=== PATIENT | male | born 1955 | race Caucasian/White ===

== ENCOUNTER 2016-11-20 09:40 | Emergency (ER) | payer BC, OTHER ==
[~2016-11-20] VITALS: Ht 172.7 cm; Wt 103.5 kg
[~2016-11-20 09:40] MED LIST: ATOR-22 PO; CLC100 PO; FELO5TAB PO; OXYC-106 PO; OXYSR20 PO
[2016-11-20 09:45] VITALS: TEMP 37.2; Ht 172.7 cm; Wt 103.5 kg
--- NOTE | 2016-11-20 09:46 | EMERGENCY ROOM VISIT NOTE ---
History Report prepared by Elena: Jelly Key Under the Supervision of: Dr. Saman Manzanares M.D. First contact with patient: 09:38 Stated Complaint: CARDIAC ASSESSMENT History of Present Illness The patient is a 61 year old male who presents to the Emergency Room with an abnormal stress test that occurred prior to arrival. Per Dr. Bermudez, Cardiology, the patient has a history of a previous cardiac arrest and UT in 2013. He notes that the patient had a stent placed in 2013 and has been doing well on Aspirin and Plavix. Dr. Bermudez reports that the patient had a routine follow up appointment today and was found to have an abnormal stress test. He states that the patient is being sent to the emergency department to have a cardiac catheterization. The patient denies having any current complaints. Source of History: patient, treating provider (Dr. Bermudez) Onset: prior to arrival Position: other (global) Quality: other (abnormal stress test) Note: No complaints Review of Systems See HPI for pertinent positives & negatives. A total of 10 systems reviewed and were otherwise negative. Past Medical & Surgical Medical Problems: (1) Cardiac arrest (2) Heart disease (3) Myocardial infarction Surgical Problems: (1) H/O heart artery stent Family History No pertinent family history stated. Social History Marital Status: Housing Status: lives with significant other Occupation Status: employed Current/Historical Medications Scheduled Aspirin (Aspirin Ec), 81 MG PO DAILY Clopidogrel (Plavix), 75 MG PO DAILY Ferrous Sulfate (Kp Ferrous Sulfate), 325 MG PO 3XWK Fish Oil (Jones-3), 1 CAP PO DAILY Lisinopril (Prinivil), 10 MG PO DAILY Metoprolol Succ (Toprol Xl) (Toprol-Xl ), 100 MG PO DAILY Nitroglycerin (Nitrostat), 0.4 MG UT PRN Pantoprazole (Protonix), 20 MG PO DAILY Rosuvastatin Calcium (Crestor), 40 MG PO DAILY Allergies Coded Allergies: Celecoxib (Unverified Adverse Reaction, Intermediate, REDDENING SKIN, ) Loperamide (Unverified Adverse Reaction, Intermediate, BODY RASH, 11/20/16) Physical Exam Vital Signs Date Time Temp Pulse Resp B/P (MAP) Pulse Ox O2 Delivery O2 Flow Rate FiO2 11/20/16 13:00 63 16 118/58 (78) 95 Room Air 11/20/16 12:45 62 16 122/60 (80) 95 Room Air 11/20/16 12:30 64 16 124/64 (84) 95 Room Air 11/20/16 12:15 62 16 119/62 (81) 95 Room Air 11/20/16 12:00 66 16 125/63 (83) 95 Room Air 11/20/16 11:45 64 16 120/64 (82) 95 Room Air 11/20/16 11:30 74 16 116/78 (91) 95 Room Air 11/20/16 11:20 78 16 119/78 (92) 95 Room Air 11/20/16 10:34 65 18 139/80 97 11/20/16 09:58 66 11/20/16 09:52 95 Room Air 11/20/16 09:45 37.2 51 18 170/85 95 Room Air Physical Exam GENERAL: Patient is a healthy-appearing well-nourished male HEAD: Normocephalic atraumatic EYES: Ocular movements intact pupils equal and react to light OROPHARYNX mucous membranes are moist no exudates present no erythema or edema present NECK: Supple no nuchal rigidity CHEST: Good equal expansion LUNGS: Clear and equal to auscultation CARDIAC: Normal S1 and S2 ABDOMEN: Soft nontender no guarding BACK: No CVA tenderness EXTREMITIES: No pain upon palpation normal muscle strength in all groups no clubbing cyanosis or edema NEURO: Patient is following commands and answering questions appropriately. Alert and oriented x3 Cranial Nerves 2-12 grossly intact Medical Decision & Procedures ER Provider Diagnostic Interpretation: X-ray results as stated below per interpretation by me and the radiologist: CHEST ONE VIEW PORTABLE CLINICAL HISTORY: Atypical chest pain COMPARISON STUDY: 09/12/2007 FINDINGS: The cardiac and mediastinal contours are normal. There is no evidence of focal pulmonary consolidation. There is no evidence of failure. No pleural effusions are visualized.[ There is a left humeral arthroplasty. IMPRESSION: No active disease in the chest. Electronically signed by: Helder Cole M.D. 11/20/2016 10:12 AM Dictated Date/Time: 11/20/2016 10:12 AM Laboratory Results 11/20/16 09:55 Red Blood Count 4.84, Mean Corpuscular Volume 85.3, Mean Corpuscular Hemoglobin 30.0, Mean Corpuscular Hemoglobin Concent 35.1, Mean Platelet Volume 11.0, Neutrophils (%) (Auto) 71.0, Lymphocytes (%) (Auto) 21.2, Monocytes (%) (Auto) 5.8, Eosinophils (%) (Auto) 1.5, Basophils (%) (Auto) 0.3, Neutrophils # (Auto) 4.67, Lymphocytes # (Auto) 1.39, Monocytes # (Auto) 0.38, Eosinophils # (Auto) 0.10, Basophils # (Auto) 0.02 11/20/16 09:55 Test 11/20/16 09:55 White Blood Count 6.57 K/uL (4.8-10.8) Red Blood Count 4.84 M/uL (4.7-6.1) Hemoglobin 14.5 g/dL (14.0-18.0) Hematocrit 41.3 % (42-52) Mean Corpuscular Volume 85.3 fL (80-100) Mean Corpuscular Hemoglobin 30.0 pg (25-34) Mean Corpuscular Hemoglobin Concent 35.1 g/dl (32-36) Platelet Count 144 K/uL (130-400) Mean Platelet Volume 11.0 fL (7.4-10.4) Neutrophils (%) (Auto) 71.0 % Lymphocytes (%) (Auto) 21.2 % Monocytes (%) (Auto) 5.8 % Eosinophils (%) (Auto) 1.5 % Basophils (%) (Auto) 0.3 % Neutrophils # (Auto) 4.67 K/uL (1.4-6.5) Lymphocytes # (Auto) 1.39 K/uL (1.2-3.4) Monocytes # (Auto) 0.38 K/uL (0.11-0.59) Eosinophils # (Auto) 0.10 K/uL (0-0.5) Basophils # (Auto) 0.02 K/uL (0-0.2) RDW Standard Deviation 42.1 fL (36.4-46.3) RDW Coefficient of Variation 13.5 % (11.5-14.5) Immature Granulocyte % (Auto) 0.2 % Immature Granulocyte # (Auto) 0.01 K/uL (0.00-0.02) Prothrombin Time 12.0 SECONDS (9.0-12.0) Prothromb Time International Ratio 1.1 (0.9-1.1) Activated Partial Thromboplast Time 28.3 SECONDS (21.0-31.0) Partial Thromboplastin Ratio 1.1 Anion Gap 6.0 mmol/L (3-11) Est Creatinine Clear Calc Drug Dose 100.2 ml/min Estimated GFR () 106.0 Estimated GFR (Non- 91.4 BUN/Creatinine Ratio 16.7 (10-20) Calcium Level 9.7 mg/dl (8.5-10.1) Total Bilirubin 0.9 mg/dl (0.2-1) Direct Bilirubin 0.2 mg/dl (0-0.2) Aspartate Amino Transf (AST/SGOT) 38 U/L (15-37) Alanine Aminotransferase (ALT/SGPT) 60 U/L (12-78) Alkaline Phosphatase 68 U/L (45-117) Total Creatine Kinase 314 U/L (39-308) Creatine Kinase MB 3.0 ng/ml (0.5-3.6) Creatine Kinase MB Ratio 1.0 (0-3.0) Troponin I < 0.015 ng/ml (0-0.045) Total Protein 7.9 gm/dl (6.4-8.2) Albumin 4.2 gm/dl (3.4-5.0) Lipase 104 U/L (73-393) Labs reviewed by ED physician. Medications Administered Medications (Trade) Dose Ordered Sig/Itzel Route Start Time Stop Time Status Last Admin Dose Admin Heparin Sodium (Porcine) (Heparin Iv Bolus) 10,000 unit STK-MED ONCE .ROUTE 11/20/16 10:12 11/20/16 10:13 DC 11/20/16 10:12 5,000 UNIT Midazolam HCl (Versed Inj) 2 mg STK-MED ONCE .ROUTE 11/20/16 10:12 11/20/16 10:13 DC 11/20/16 10:12 1 MG Fentanyl Citrate (Fentanyl Inj) 100 mcg STK-MED ONCE .ROUTE 11/20/16 10:12 11/20/16 10:13 DC 11/20/16 10:12 12.5 MCG ECG Indication: other (abnormal stress test) Rate (beats per minute): 65 Rhythm: sinus rhythm Findings: 1st degree AV block, PVC, no acute ischemic change, other (old inferior infarct) ED Course 0938: Past medical records reviewed. The patient was evaluated in room A12B. A complete history and physical examination was performed. 1030: The patient understands and agrees with the treatment plan. He will be taken to the experimental machining lab manager for further evaluation and treatment. 1051: I discussed the patients case with Gregor Jesus. He states that he has the patient in the experimental machining lab manager. Medical Decision Differential diagnosis: Etiologies such as cardiac ischemia, aortic dissection, pulmonary embolism, pneumonia, pneumothorax, musculoskeletal, infections, pericarditis, myocarditis , esophageal rupture, gastrointestinal, as well as others were entertained. This is a 61-year-old male who presents emergency department after failing a stress test today as an out patient. An EKG was obtained which was unchanged from previous. The patient will be sent to the Industrial Relations Worker. I did discuss the case with Dr. Watt. Medication Reconcilliation Current Medication List: was personally reviewed by me Blood Pressure Screening Patient's blood pressure: Elevated blood pressure Blood pressure disposition: Referred to PCP Consults Time Called: 1049 Consulting Physician: Dr. Watt Cardiology Returned Call: 1051 I discussed the patients case with Dr. Watt Cardiology. He states that he has the patient in the experimental machining lab manager. Impression Primary Impression: Precordial chest pain Scribe Attestation The scribe's documentation has been prepared under my direction and personally reviewed by me in its entirety. I confirm that the note above accurately reflects all work, treatment, procedures, and medical decision making performed by me. Departure Information Dispostion Other (experimental machining lab manager) Referrals No Doctor, Assigned (PCP)
[2016-11-20] MEDS ORDERED: NiCARDipine HCL INJ 2.5 MG/ML 10 ML AMP ONE (10:12)
[2016-11-20] MEDS ORDERED: NITROGLYCERIN/D5W 100MCG/ML 20ML SYR ONE (10:12)
[2016-11-20] MEDS ORDERED: HEPARIN SOD (PORCINE) 1000 UNIT/ML 10 ML VIAL ONE (10:12)
[2016-11-20] MEDS ORDERED: MIDAZOLAM HCL 1 MG/ML 2ML VIAL ONE (10:12)
[2016-11-20] MEDS ORDERED: FENTANYL CITRATE INJ 50 MCG/1 ML 2 ML VIAL ONE (10:12)
[2016-11-20] MEDS ORDERED: NTRGSL/4 UT (10:14)
[2016-11-20] MEDS ORDERED: ASPI81TA28 PO (10:14)
[2016-11-20] MEDS ORDERED: PRT/20 PO (10:14)
[2016-11-20] MEDS ORDERED: CLOP1TAB15 PO (10:14)
[2016-11-20] MEDS ORDERED: LISI10TA PO (10:14)
[2016-11-20] MEDS ORDERED: FERR1TAB13 PO (10:14)
[2016-11-20] MEDS ORDERED: ROSU40TA PO (10:14)
[2016-11-20] MEDS ORDERED: METO1TAB69 PO (10:14)
[2016-11-20] MEDS ORDERED: OMEG10007 PO (10:14)
--- NOTE | 2016-11-20 10:14 | DIAGNOSTIC IMAGING REPORT ---
CHEST ONE VIEW PORTABLE CLINICAL HISTORY: Atypical chest pain COMPARISON STUDY: 09/12/2007 FINDINGS: The cardiac and mediastinal contours are normal. There is no evidence of focal pulmonary consolidation. There is no evidence of failure. No pleural effusions are visualized.[ There is a left humeral arthroplasty. IMPRESSION: No active disease in the chest. Electronically signed by: Helder Cole M.D. 11/20/2016 10:12 AM Dictated Date/Time: 11/20/2016 10:12 AM
[2016-11-20 10:18] LABS: BASO % 0.3 %; BASO ABS # 0.02 K/uL (0-0.2); COMPLETE YES; EOS % 1.5 %; HEMATOCRIT 41.3 % (42-52); IG% 0.2 %; LYMPH % 21.2 %; LYMPH ABS # 1.39 K/uL (1.2-3.4); MEAN CELL VOLUME 85.3 fL (80-100); MEAN CORPUSCULAR HGB CONC 35.1 g/dl (32-36); MONO % 5.8 %; PLATELET COUNT 144 K/uL (130-400); RED BLOOD COUNT 4.84 M/uL (4.7-6.1); WHITE BLOOD COUNT 6.57 K/uL (4.8-10.8)
[2016-11-20 10:34] VITALS: O2SAT 97
[2016-11-20 10:34] LABS: INR 1.1 (0.9-1.1); PARTIAL THROMBOPLASTIN RATIO 1.1
[2016-11-20 10:38] LABS: ALT/SGPT 60 U/L (12-78); AST/SGOT 38 U/L (15-37); BLOOD UREA NITROGEN 15 mg/dl (7-18); BUN/CREATININE RATIO 16.7 (10-20); CALCIUM 9.7 mg/dl (8.5-10.1); CARBON DIOXIDE 26 mmol/L (21-32); CHLORIDE 106 mmol/L (98-107); CREATININE 0.88 mg/dl (0.60-1.40); GLUCOSE 119 mg/dl (70-99); POTASSIUM 4.2 mmol/L (3.5-5.1); SODIUM 138 mmol/L (136-145)
[2016-11-20 10:46] LABS: ALKALINE PHOSPHATASE 68 U/L (45-117)
[2016-11-20] MEDS ORDERED: SODIUM CHLORIDE 0.9% 1000ML 1,000 ML IV SCH (11:33)
[2016-11-20] MEDS ORDERED: SODIUM CHLORIDE 0.9% 1000ML 250 ML IV PRN (11:33)
[2016-11-20] MEDS ORDERED: ATROPINE SULFATE 0.1 MG/ML 5ML SYR IV PRN (11:45)
[2016-11-20] MEDS ORDERED: NITROGLYCERIN 0.4 MG SL PER TAB CHARGE SL PRN (11:45)
[2016-11-20] MEDS ORDERED: ACETAMINOPHEN 325 MG TAB PO PRN (11:45)
--- NOTE | 2016-11-20 12:00 | [facility] Post Operative Brief Note ---
Preliminary Procedure Note Procedure Date Nov 20, 2016. Pre-Procedure Diagnosis Positive Stress Test, CAD AUC Score 7 Post-Procedure Diagnosis Severe CAD Procedure(s) Performed Coronary Angiography, Left Heart Cath, LV Angiography Chief Technologist Dr. Dipak Watt Loading Machine Adjuster(s) Becky Gaviria Estimated Blood Loss <15cc Medication(s) Fentanyl (12.5 mcg IV), Heparin (5000u IV), Nicardipine (250mcg intraarterial after sheath insertion), Nitroglycerin (200mcg intraarterial after sheath insertion), Versed (1mg IV), Lidocaine 1% (local infiltration) Preliminary Findings Left dominant coronary anatomy LM: calcified with 50% ostial and distal stenoses LAD: Type 1 with large diagonal. LAD eccentric 70% ostial stenosis LCX: Dominant, with high marginal, moderate large second marginal arising from stented area, small M3, large LPDA and [address] LCX has 50% proximal, 40% at prior stent. Second marginal is severely narrowed at origin >90% RCA: Non dominant without disease LV EF 50-55% no MR LVEDP 10 Recommendations CABG Specimens None Fluids (cc crystalloids) 260 Anesthesia Start 1049 End 1120 Monitor M Miguelina VELASQUEZ Procedural Complication(s) None Disposition Title Attorney Holding/Recovery
--- NOTE | 2016-11-20 12:19 | Discharge Instructions ---
Discharge Instructions Procedure Procedure Date: Nov 20, 2016. Reason for Visit: Cardiac Assessment. Discharge Discharge Date: Nov 20, 2016. Discharge Diagnosis: Coronary artery disease, abnormal stress test Problem List: Medical Problems: (1) Precordial chest pain Status: Acute Last Recorded Wt (Kilograms): 103.500 Anesthesia Post Anesthesia Instructions: If you have had General Anesthesia or IV Sedation: * Do not drive today. * Resume driving when surgeon permits. * Do not make important decisions or sign legal documents today. * Call surgeon for: 1. Temperature elevations greater than 101 degrees F. 2. Uncontrollable pain. 3. Excessive bleeding. 4. Persistent nausea and vomiting. 5. Medication intolerance (nausea, vomiting or rash). * For nausea and vomiting use only clear liquids such as: tea, soda, bouillon until nausea subsides, then gradually increase diet as tolerated. * If you have any concerns or questions, call your surgeon's office. If physician is unavailable and it is an emergency, call 911 or go to the nearest emergency room. Instructions Activity Recommendations: limitations as noted below Recommended Home Diet: resume previous diet Allergies: Coded Allergies: Celecoxib (Unverified Adverse Reaction, Intermediate, REDDENING SKIN, ) Loperamide (Unverified Adverse Reaction, Intermediate, BODY RASH, 11/20/16) Follow Up Additional Instructions: ACTIVITY RECOMMENDATIONS: It is common to feel weak and fatigue for a few days. * Do not drive or operate any motorized equipment for the next three days. * Limit stair usage (2 or 3 trips a day only) for the next three days. * Do not lift anything heavier than 10 pounds for the next three days. * Do not engage in vigorous exercise * You may shower the day after your procedure, but do not immerse the area for three days. Cleanse the site gently with soap and water. SPECIAL CARE INSTRUCTIONS: * You may replace the pressure dressing or band-aid the morning after the procedure. * After your procedure, it is normal to have a small bruise or small lump at the site. Examine your site daily for any change in the bruise or lump, redness, swelling, drainage or numbness. Notify your doctor if any change. BLEEDING: * If there is a small amount of bleeding at the site, lie down and apply firm pressure with a clean cloth for ten minutes. When the bleeding stops, lie quietly keeping the procedure limb straight for six hours. Notify your doctor as soon as possible. * If the bleeding does not stop after ten minutes or if there is a large amount of bleeding or spurting, call 911 immediately. Continue to lie down and hold firm pressure until help arrives. SKIN IRRITATION: * You may experience some redness and/or swelling in the area where radiation was administered. If any skin irritation occurs, please contact your family physician. FOLLOW UP VISIT: Keep any scheduled doctor appointments. Follow-up with: Cardiovascular Surgery : Dr Compa Painter at [facility] 12/04 [facility] Recommendations: Call your doctor if: * Temperature above 101 degrees * Pain not relieved by pain medicine ordered * There is increased drainage or redness from any incision * You have any unanswered questions or concerns. Your Doctors Instructions noted above were prepared by provider Dipak Watt. Patient Signature Section: Patient Instructions Signature Page Samuel Motta Patient (or Guardian) Signature/Date: I have read and understand the instructions given to me by my caregivers. Caregiver/RN/Doctor Signature/Date: The above-named patient and/or guardian has received patient instructions on this date. + Original Patient Signature Page (only) stays with chart. Please make copy for patient.
[2016-11-20 13:45] VITALS: BP 118/63; PULSE 62; O2SAT 95
--- NOTE | 2016-11-20 16:03 | CARDIOLOGY CONSULTATION ---
DATE OF CONSULTATION: 11/20/2016 REFERRING: Dr. Manzanares. PRIMARY CARE PHYSICIAN: Dr. Diop. INDICATIONS: Abnormal stress testing. HISTORY OF PRESENT ILLNESS: The patient is a 61-year-old male who carries a cardiac history of ischemic heart disease, status post acute thrombotic posterolateral myocardial infarction in 2013. Course notable for acute cardiac arrest during event. He is referred and underwent acute coronary intervention after transfer from [facility] to [facility] in [place]. The patient at that time received bare metal stent to a subtotal lesion of the obtuse marginal. The patient had moderate narrowing of the left main of 30% and of the diagonal branch, narrowing per report of mild disease and 30% at its most severe. The patient has been followed routinely. He was asymptomatic prior to the initial event and today was referred to undergo elective stress testing. Underlying medical problems include hypertension, dyslipidemia, and strong familial history of coronary artery disease. He underwent stress testing today with the patient exercising for 5 minutes and 30 seconds on a Frandy protocol with hypertensive blood pressure response. Study was stopped secondary to dyspnea and increasing ventricular ectopy. Post-procedure, the patient developed new ST segment depression in the inferolateral leads as well as wall motion abnormality with hypokinesis to dyskinesis of the apex, apical, inferior and septal campbell. He is referred to the Emergency Room for further evaluation. He noted no acute symptoms other than dyspnea with exertion during the study. He notes no overt symptoms at home prior to this. He has been ambulatory, walking, has lost approximately 10 pounds with dietary intervention. Notes no fevers, chills or productive cough. Notes no melena, hematochezia, dysuria or hematuria. Appetite has been good but weight has been dropping as per appropriate efforts. REVIEW OF SYSTEMS: Otherwise negative. ALLERGIES: IMODIUM AND CELEBREX. MEDICATIONS: Prior to hospitalization were Crestor 40 mg p.o. q. day, Plavix 75 mg p.o. q. day, aspirin 81 mg per day, Toprol-XL 100 mg p.o. q. day, Prilosec 20 mg p.o. q. day, lisinopril 10 mg p.o. q. day. PAST SURGICAL HISTORY: Notable for remote inguinal herniorrhaphy, prior prostatectomy, left shoulder surgery in February 2015. FAMILY HISTORY: Notable for coronary disease. Father succumbing to myocardial infarction at age 64. Brother suddenly at age 56. SOCIAL HISTORY: The patient resides in the [place] area. 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 He is a nonsmoker, nondrinker with past tobacco use discontinued in 2008. PHYSICAL EXAMINATION: VITAL SIGNS: Heart rate 64, blood pressure is 140/80. HEENT: Normocephalic and atraumatic. Nares without discharge. Throat was clear. NECK: Supple without thyromegaly, lymphadenopathy, JVD or bruit. LUNGS: Clear to auscultation. CARDIOVASCULAR: Regular. There is no audible ectopy. There is no audible murmur or rub. PMI is nondisplaced. ABDOMEN: Soft, nontender. There is no palpable hepatosplenomegaly. There is no hepatojugular reflux. EXTREMITIES: Without cyanosis or clubbing. There is no peripheral edema. Femoral and distal pulses are 2+/4. NEUROLOGIC: The patient is alert and answering questions appropriately. DIAGNOSTIC DATA: EKG on ER visit demonstrates sinus bradycardia with first degree AV block with occasional ventricular ectopic beats. LABORATORY STUDIES: Pending. Chest x-ray reveals no acute infiltrate or edema. Stress echocardiogram as per HPI demonstrated a moderate level workload with study stopped secondary to EKG abnormalities with increasing ventricular ectopy and new wall motion abnormalities noted post-stress with preserved LV systolic function and no significant valve disease. IMPRESSION: The patient is a 61-year-old male with underlying history of known ischemic heart disease and multiple cardiac risk factors who presented with a silent ischemic acute infarct on initial event in 2013, underwent stress echocardiography for evaluation of risk factors and symptoms, stable class 2 angina pectoris prior to stress testing. Study was significantly positive. He is referred now for diagnostic cardiac catheterization via ER presentation. Procedure and risks explained in detail to the patient, informed consent was obtained. Anticipate going to right radial approach with further recommendations pending results of the study.
--- NOTE | 2016-11-23 11:57 | Cardiac Catheterization ---
Procedure Note Procedure Date Nov 20, 2016. Pre-Procedure Diagnosis Positive Stress Test AUC Score 8 Post-Procedure Diagnosis Severe CAD, Normal LV Systolic Function, Normal Intracardiac Pressures (Becky Gaviria) Procedure(s) Performed Coronary Angiography, Left Heart Cath, LV Angiography Digital Manager Dr. Dipak Watt Gymnastics Coach Or Instructor(s) Estimated Blood Loss <15 cc Medication(s) Lidocaine 1% (Fentanyl (12.5 mcg IV), Heparin (5000u IV), Nicardipine (250mcg intraarterial after sheath insertion), Nitroglycerin (200mcg intraarterial after sheath insertion), Versed (1mg IV), Lidocaine 1% (local infiltration)) Summary of Findings Left dominant coronary anatomy LM: calcified with 50% ostial and distal stenoses LAD: Type 1 with large diagonal. LAD eccentric 70% ostial stenosis LCX: Dominant, with high marginal, moderate large second marginal arising from stented area, small M3, large LPDA and [address] LCX has 50% proximal, 40% at prior stent. Second marginal is severely narrowed at origin >90% RCA: Non dominant without disease LV EF 50-55% no MR LVEDP 10 Hemodynamics Rest Ao: 99/66/81 Final Ao: 114/66/88 LV: 109/8/LVEDP10 Recommendations CABG Specimens None Radiation Exposure (mGy) 2133 Contrast (mls) 129 Fluids (cc crystalloids) 260 Anesthesia Start 1049 End 1120 Monitor Oswald Mcintyre RN Procedural Complication(s) None Disposition Truck Loader Holding/Recovery ACC Data Cardiac Status Clinical evaluation leading to the procedure CAD Presntation: Stable angina Anginal Classification: CCS I Heart Failure: No Cardiogenic Shock w/in 24Hrs: No Cardiac Arrest w/in 24Hrs: No Imaging studies past 6 months: Yes Stress studies past 6 months: Yes Stress Echocardiogram: Yes - Positive, Risk/Extent of Ischemia (High) Coronary Anatomy Dominant: Left Left Main (% Stenosis): Ostial (50), Distal (50) LAD (% Stenosis): Ostial (70) D1 (% Stenosis): Normal Circumflex (% Stenosis): Ostial (50), Proximal (40) OM1 (% Stenosis): Normal OM2 (% Stenosis): Normal OM3 (% Stenosis): Ostial (90) L PL1 (% Stenosis): Normal L PL2 (% Stenosis): Normal L PDA (% Stenosis): Normal RCA (% Stenosis): Normal Left Ventricular Angiography EF (%): 50-55 Mitral Regurgitation: None Diagnostic Physician's Name: Dipak Watt M.D. Status: Urgent Closure Device Percutaneous Entry Location: Radial Closure Device: Radial Band Recommendations: CABG
== END 2016-11-20 10:35 | disposition home or self-care (01) ==
LOC: EDBD 09:40 → C.EDA 09:41 → CANBEDREQ 11:28
DX: I25.118 Atherosclerotic heart disease of native coronary artery with other forms of angina pectoris (principal); I10 Essential (primary) hypertension; E78.00 Pure hypercholesterolemia, unspecified; I25.10 Atherosclerotic heart disease of native coronary artery without angina pectoris; E66.9 Obesity, unspecified; E78.5 Hyperlipidemia, unspecified; I25.9 Chronic ischemic heart disease, unspecified; Z82.49 Family history of ischemic heart disease and other diseases of the circulatory system; Z85.46 Personal history of malignant neoplasm of prostate; Z87.891 Personal history of nicotine dependence; Z95.5 Presence of coronary angioplasty implant and graft; Z79.899 Other long term (current) drug therapy; Z79.01 Long term (current) use of anticoagulants; Z79.02 Long term (current) use of antithrombotics/antiplatelets